=== PATIENT | male | born 1955 | race African-American/Black ===

== ENCOUNTER 2017-03-13 12:55 | Emergency (ER) | payer OTHER ==
[2017-03-13] MEDS ORDERED: Bacitracin Zinc 1 Packet ONE (13:39)
--- NOTE | 2017-03-13 13:57 | RAD ---
LEFT RIBS 2 VIEWS WITH PA CHEST XRAY: HISTORY: Fall yesterday on wet concrete. Pain to the lower left ribs. COMPARISON: Chest 2 views from 2013. FINDINGS: Evidence of old healing rib fracture in the 6th rib. There are acute fractures of the posterior lateral left 6th and 7th ribs. IMPRESSION: Acute fracture of the posterior left 6th and 7th ribs with minimal displacement. No underlying pneu mothorax or significant effusion. POS: [facility]
== END 2017-03-13 14:25 | disposition home or self-care (01) ==
LOC: NAV ERS 12:55
DX: S22.42XA Multiple fractures of ribs, left side, initial encounter for closed fracture (principal); S01.01XA Laceration without foreign body of scalp, initial encounter; E11.9 Type 2 diabetes mellitus without complications; J44.9 Chronic obstructive pulmonary disease, unspecified; F17.210 Nicotine dependence, cigarettes, uncomplicated; W01.198A Fall on same level from slipping, tripping and stumbling with subsequent striking against other object, initial encounter
CPT/HCPCS: 94799

== ENCOUNTER 2018-03-06 20:01 | Emergency (ER) | payer OTHER ==
[2018-03-06] MEDS ORDERED: Acetaminophen/Codeine 30-300mg Tablet ONE (20:11)
--- NOTE | 2018-03-06 21:20 | RAD ---
PORTABLE SEMIUPRIGHT FRONTAL CHEST RADIOGRAPH: Date: 03-06-18 Comparison: 02-06-05 History: Increasing pain and cough. FINDINGS: No pneumothorax, pleural fluid, lobar consolidation or alveolar edema. Heart and mediastinal contours are unremarkable. There is degenerative change involving bilateral acromioclavicular joints. IMPRESSION: No acute findings. POS: [facility]
--- NOTE | 2018-03-06 21:22 | RAD ---
THREE VIEWS LEFT FOOT: Date: 03-06-18 Comparison: None. History: Wound, left great toe pain. FINDINGS: There is severe degenerative change involving the first metatarsal phalangeal joint with joint space narrowing, subchondral sclerosis, osteophyte formation, and subchondral cystic change. There is mild/ moderate degenerative change of the first interphalangeal joint. No displaced fracture or evidence of dislocation is seen. No radiopaque foreign body or subcutaneous gas. IMPRESSION: Prominent degenerative changes, especially involving the first metatarsal phalangeal joint. POS: [facility]
== END 2018-03-06 22:25 ==
LOC: NAV ERS 20:01
DX: S91.302A Unspecified open wound, left foot, initial encounter (principal); R05 Cough; E11.9 Type 2 diabetes mellitus without complications; J44.9 Chronic obstructive pulmonary disease, unspecified; F17.210 Nicotine dependence, cigarettes, uncomplicated; Z79.899 Other long term (current) drug therapy; Z79.82 Long term (current) use of aspirin; Z79.84 Long term (current) use of oral hypoglycemic drugs; X58.XXXA Exposure to other specified factors, initial encounter
CPT/HCPCS: 71045

== ENCOUNTER 2018-05-08 10:24 | Outpatient (CLI) | payer OTHER ==
[2018-05-08 11:00] LABS: #Basophils 0.1 thou/uL (0.0-0.2); #Eosinphils 0.3 thou/uL (0.0-0.7); #Lymphocytes 2.7 thou/uL (1.20-3.40); #Monocytes 0.3 thou/uL (0.11-0.59); #Neutrophils 2.8 thou/uL (1.40-6.50); %Basophils 0.9 % (0.0-1.0); %Eosinophils 5.3 % (0.0-10.0); %Lymphocytes 43.5 % (21.0-51.0); %Monocytes 4.9 % (0.0-10.0); %Neutrophils 45.5 % (42.0-75.0); Hemoglobin 12.6 g/dL (14.0-18.0); Mean Corpuscular HGB CONC 30.7 g/dL (32.0-36.0); Mean Corpuscular Volume 91.4 fL (78.0-98.0); Mean Platelet Volume 8.4 fL (7.4-10.4); Platelet Count 257 thou/uL (130-400); RBC Distribution Width 15.5 % (11.5-14.5); Red Blood Cell (RBC) Count 4.48 mill/uL (4.70-6.10); White Blood Cell (WBC) Count 6.2 thou/uL (4.8-10.8)
== END 2018-05-08 10:25 | disposition home or self-care (01) ==
LOC: NAV LAB 10:24
PROVIDERS: ATTEND Family Medicine
DX: J96.01 Acute respiratory failure with hypoxia (principal); G90.09 Other idiopathic peripheral autonomic neuropathy; E11.8 Type 2 diabetes mellitus with unspecified complications
CPT/HCPCS: 85025